=== PATIENT | male | born 1940 | race Caucasian/White ===

== ENCOUNTER 2018-06-13 07:07 | Emergency (ER) | payer MEDICARE, OTHER ==
--- NOTE | 2018-06-13 07:11 | ER Report ---
History and Physical Time Seen By MD: 07:10 HPI/ROS CHIEF COMPLAINT: Left-sided abdominal pain 2 weeks HISTORY OF PRESENT ILLNESS: Patient is a 77-year-old male here with complaints of progressively worsening left-sided abdominal pain over the course the past 2 weeks. Patient reports constipation, last full bowel movement was several days ago. The patient is passing flatus. He does have a history significant for an appendectomy at a young age, hiatal hernia repair in 2016. Denies prior history of bowel obstructions. Denies taking analgesics for symptom management. Patient does have a history of hyperlipidemia, hypertension, hypothyroid. Denies recent history of abdominal trauma. REVIEW OF SYSTEMS: Constitutional: No fever, no chills. Eyes: No discharge. ENT: No sore throat. Cardiovascular: No chest pain, no palpitations. Respiratory: No cough, no shortness of breath. Gastrointestinal: + Left side abdominal pain, no vomiting, + intermittent mild nausea, denies blood in the stools or urine Genitourinary: No hematuria. Musculoskeletal: No back pain. Skin: No rashes. Neurological: No headache. Allergies: Coded Allergies: No Known Allergies (Verified Allergy, Unknown, 06/13/18) Home Meds Active Scripts Oxycodone Hcl (OXYCODONE HCL) 5 Mg Capsule, 5 MG PO Q6-8H PRN for PAIN, #10 CAPSULE Prov:SIRIA MURRIETA DO 06/13/18 Ondansetron 4 Mg Odt (ONDANSETRON 4 MG ODT) 4 Mg Tab.rapdis, 4 MG PO ONCE, #30 TAB Prov:SIRIA MURRIETA DO 06/13/18 Amoxicillin/Pot Clav 875-125 Mg Tab (AUGMENTIN 875-125 TABLET) 1 Each Tablet, 1 TAB PO Q12H for 10 Days, #20 TAB Prov:SIRIA MURRIETA DO 06/13/18 Reported Medications Rosuvastatin Calcium (CRESTOR) 10 Mg Tab, 10 MG PO QDAY, #5 TAB 06/13/18 Fenofibrate,Micronized (TRICOR) 145 Mg Tab, 145 MG PO QDAY, #10 TAB 06/13/18 Losartan/Hydrochlorothiazide (HYZAAR 100-25 TABLET) 1 Each Tablet, 1 EACH PO QDAY 06/13/18 Levothyroxine Sodium (SYNTHROID) 100 Mcg Tablet, 100 MCG PO QDAY 06/13/18 Constitutional Vital Sign - Last 24 Hours 06/13/18 06/13/18 06/13/18 06/13/18 07:07 07:12 07:16 07:30 Temp 97.7 Pulse 56 56 Resp 14 B/P (MAP) 162/85 (110) 162/85 152/78 (102) Pulse Ox 93 O2 Delivery Room Air 06/13/18 06/13/18 06/13/18 06/13/18 07:37 08:23 08:30 08:35 Pulse 55 61 B/P (MAP) 149/74 (99) 144/72 (96) Pulse Ox 92 92 06/13/18 06/13/18 08:40 09:00 Pulse 57 B/P (MAP) 141/77 (98) Pulse Ox 92 Physical Exam General Appearance: The patient is alert, has no immediate need for airway protection and no signs of toxicity. Uncomfortable appearing Eyes: Pupils equal and round no pallor or injection. ENT, Mouth: Mucous membranes are moist. Respiratory: There are no retractions, lungs are clear to auscultation. Cardiovascular: Regular rate and rhythm. Gastrointestinal: Tender on palpation of the left mid abdomen without rebound or guarding Neurological: No focal neurological deficits Skin: Warm and dry, no rashes. Musculoskeletal: Neck is supple non tender. Extremities are nontender, nonswollen and have full range of motion. DIFFERENTIAL DIAGNOSIS: After history and physical exam differential diagnosis was considered for abdominal pain including but not limited to appendicitis, cholecystitis, gastritis and urinary tract infection. Diverticulitis Medical Decision Making Data Points Result Diagram: 06/13/18 0717 06/13/1817 Laboratory Hematology Test 06/13/18 07:17 06/13/18 07:36 Red Blood Count 5.44 M/uL (4.00-5.60) Mean Corpuscular Volume 89.6 fL (80.0-96.0) Mean Corpuscular Hemoglobin 30.5 pg (26.0-33.0) Mean Corpuscular Hemoglobin Concent 34.1 g/dL (32.0-36.0) Red Cell Distribution Width 13.7 % (11.5-14.5) Mean Platelet Volume 9.2 fL (7.2-11.1) Neutrophils (%) (Auto) 61.2 % (39.4-72.5) Lymphocytes (%) (Auto) 26.3 % (17.6-49.6) Monocytes (%) (Auto) 9.6 % (4.1-12.4) Eosinophils (%) (Auto) 2.3 % (0.4-6.7) Basophils (%) (Auto) 0.6 % (0.3-1.4) Nucleated RBC Relative Count (auto) 0.1 /100WBC Neutrophils # (Auto) 6.1 K/uL (2.0-7.4) Lymphocytes # (Auto) 2.6 K/uL (1.3-3.6) Monocytes # (Auto) 1.0 K/uL (0.3-1.0) Eosinophils # (Auto) 0.2 K/uL (0.0-0.5) Basophils # (Auto) 0.1 K/uL (0.0-0.1) Nucleated RBC Absolute Count (auto) 0.01 K/uL Sodium Level 142 mmol/L (137-145) Potassium Level 3.6 mmol/L (3.5-5.0) Chloride Level 101 mmol/L (98-107) Carbon Dioxide Level 29 mmol/L (22-30) Blood Urea Nitrogen 20 mg/dl (9-21) Creatinine 1.30 mg/dl (0.66-1.25) Glomerular Filtration Rate Calc 53.8 Random Glucose 107 mg/dl (75-110) Calcium Level 9.9 mg/dl (8.4-10.2) Total Bilirubin 0.6 mg/dl (0.2-1.3) Aspartate Amino Transf (AST/SGOT) 46 U/L (0-35) Alanine Aminotransferase (ALT/SGPT) 46 U/L (0-56) Alkaline Phosphatase 37 U/L (0-126) Total Protein 8.1 g/dl (6.3-8.2) Albumin 4.9 g/dl (3.5-5.0) Lipase 329 U/L (23-300) Lactate 1.3 mmol/L (0.7-2.1) Chemistry Test 06/13/18 07:17 06/13/18 07:36 White Blood Count 10.0 k/uL (4.5-11.0) Red Blood Count 5.44 M/uL (4.00-5.60) Hemoglobin 16.6 g/dL (14.0-18.0) Hematocrit 48.8 % (42.0-52.0) Mean Corpuscular Volume 89.6 fL (80.0-96.0) Mean Corpuscular Hemoglobin 30.5 pg (26.0-33.0) Mean Corpuscular Hemoglobin Concent 34.1 g/dL (32.0-36.0) Red Cell Distribution Width 13.7 % (11.5-14.5) Platelet Count 214 K/uL (150-450) Mean Platelet Volume 9.2 fL (7.2-11.1) Neutrophils (%) (Auto) 61.2 % (39.4-72.5) Lymphocytes (%) (Auto) 26.3 % (17.6-49.6) Monocytes (%) (Auto) 9.6 % (4.1-12.4) Eosinophils (%) (Auto) 2.3 % (0.4-6.7) Basophils (%) (Auto) 0.6 % (0.3-1.4) Nucleated RBC Relative Count (auto) 0.1 /100WBC Neutrophils # (Auto) 6.1 K/uL (2.0-7.4) Lymphocytes # (Auto) 2.6 K/uL (1.3-3.6) Monocytes # (Auto) 1.0 K/uL (0.3-1.0) Eosinophils # (Auto) 0.2 K/uL (0.0-0.5) Basophils # (Auto) 0.1 K/uL (0.0-0.1) Nucleated RBC Absolute Count (auto) 0.01 K/uL Glomerular Filtration Rate Calc 53.8 Calcium Level 9.9 mg/dl (8.4-10.2) Total Bilirubin 0.6 mg/dl (0.2-1.3) Aspartate Amino Transf (AST/SGOT) 46 U/L (0-35) Alanine Aminotransferase (ALT/SGPT) 46 U/L (0-56) Alkaline Phosphatase 37 U/L (0-126) Total Protein 8.1 g/dl (6.3-8.2) Albumin 4.9 g/dl (3.5-5.0) Lipase 329 U/L (23-300) Lactate 1.3 mmol/L (0.7-2.1) EKG/Imaging Imaging FACILITY: [facility] [place]IENT NAME: Ramy Obregon : 1940 MR: [id number] V: [id number] EXAM DATE: ORDERING PHYSICIAN: SIRIA MURRIETA TECHNOLOGIST: Location: [facility] Patient: Ramy Obregon : 1940 Visit/Account:[id number] Date of Sevice: 06/13/2018 CT ABDOMEN PELVIS W/ CON HISTORY: , Left sided abd pain TECHNIQUE: CT abdomen and pelvis with intravenous contrast. One of the following dose optimization techniques was utilized in the performance of this exam: automated exposure control; adjustment of the mA and/or kV according to patient size; or use of iterative reconstruction technique. Specific details can be referenced in the facility?s radiology CT exam operational policy. CONTRAST: 90 mL Isovue-370 COMPARISON: None. FINDINGS: Visualized lung bases: Negative. Hepatobiliary: The liver is diffusely low in attenuation consistent with fatty infiltration. Spleen: Punctate calcifications consistent with old granulomatous disease are present. Adrenals: Negative. Pancreas: Negative. Kidneys/: The kidneys enhance symmetrically. There is a 3.3 cm left upper pole cyst present GI: Within the left lower quadrant, there is a focal area of inflammation involving a descending colonic diverticulum consistent with focal diverticulitis. There is no evidence of perforation or abscess. No obstruction is identified. The remainder of the bowel is within normal limits. Vessels/spaces/nodes: Moderate atherosclerotic disease of the abdominal aorta is present. Within the right lower quadrant, scarring is present from hernia repair Bones/soft tissues: Moderate degenerative disc space disease is noted within the visualized thoracic spine IMPRESSION: Uncomplicated focal diverticulitis of the distal descending colon. Incidental findings as described Results were discussed with SIRIA MURRIETA at 06/13/2018 8:15 a.m.. Report Dictated By: Fredrick Lazcano at 06/13/2018 8:16 AM ED Course/Re-evaluation ED Course Patient is a 77-year-old male here with complaints of left-sided abdominal pain for 2 weeks which has been intermittent, worsening. Patient is passing flatus. Patient does have a history of an appendectomy at an early age, hiatal hernia repair in 2016. Denies prior history of bowel obstruction. Labs and CT imaging were ordered. Patient was given IV fluid bolus, fentanyl. CT imaging identified an uncomplicated diverticulitis. Patient was given prescription for Augmentin 10 day course, close PCP follow-up recommended. Labs are unremarkable. Scripts for oxicodone and Zofran were given for symptomatic treatment. Return precautions provided. Decision to Disposition Date: Jun 13, 2018 Decision to Disposition Time: 09:00 Depart Departure Latest Vital Signs Vital Signs Date Time Temp Pulse Resp B/P (MAP) Pulse Ox O2 Delivery O2 Flow Rate FiO2 06/13/18 09:00 141/77 (98) 06/13/18 08:40 57 92 06/13/18 07:16 97.7 14 Room Air Impression: Primary Impression: Diverticulitis Condition: Improved Disposition: HOME OR SELF-CARE New Scripts Oxycodone Hcl (OXYCODONE HCL) 5 Mg Capsule 5 MG PO Q6-8H PRN for PAIN, #10 CAPSULE Prov: SIRIA MURRIETA DO 06/13/18 Ondansetron 4 Mg Odt (ONDANSETRON 4 MG ODT) 4 Mg Tab.rapdis 4 MG PO ONCE, #30 TAB Prov: SIRIA MURRIETA DO 06/13/18 Amoxicillin/Pot Clav 875-125 Mg Tab (AUGMENTIN 875-125 TABLET) 1 Each Tablet 1 TAB PO Q12H for 10 Days, #20 TAB Prov: SIRIA MURRIETA DO 06/13/18 Patient Instructions: Diverticulitis (ED) Additional Instructions: Please take Augmentin 1 tablet twice daily for 10 days. Please follow-up with y our family doctor in the next 3-5 days. Please return immediately if you develop worsening abdominal pain, fevers, blood in the stools or urine, inability to keep down food or fluids, abdominal distention. Please drink plenty of water. You may take Zofran 1 tablet every 4-6 hours as needed for nausea control. You may take oxycodone 1 tablet every 6-8 hours as needed for breakthrough pain control, please do not drink alcohol or drive while on this medication. SIRIA MURRIETA DO Jun 13, 2018 07:11
[2018-06-13] MEDS ORDERED: NS(*) 0.9% 1000 ML BAG 1,000 ML IV ONE (07:26)
[2018-06-13] MEDS ORDERED: FEN145 PO (07:28)
[2018-06-13] MEDS ORDERED: LEVO100T95 PO (07:28)
[2018-06-13] MEDS ORDERED: ROSU10TA PO (07:28)
[2018-06-13] MEDS ORDERED: LOSA-44 PO (07:28)
[2018-06-13] MEDS ORDERED: fentaNYL CITR 100 MCG/2 ML AMP IVP ONE (07:30)
[2018-06-13 07:34] LABS: PLATELET COUNT, AUTOMATED 214 K/uL (150-450)
[2018-06-13] MEDS ORDERED: IOPAMIDOL 76% 150 ML INFUS BTL 150 ML ONE (07:55)
--- NOTE | 2018-06-13 08:37 | RADIOLOGY IMAGING REPORT ---
FACILITY: [facility] - [place] PATIENT NAME: Ramy Obregon : 1940 MR: [id number] V: [id number] EXAM DATE: ORDERING PHYSICIAN: SIRIA MURRIETA TECHNOLOGIST: Location: [facility] - [place] Patient: Ramy Obregon : 1940 Visit/Account:[id number] Date of Sevice: 06/13/2018 CT ABDOMEN PELVIS W/ CON HISTORY: , Left sided abd pain TECHNIQUE: CT abdomen and pelvis with intravenous contrast. One of the following dose optimization techniques was utilized in the performance of this exam: autom ated exposure control; adjustment of the mA and/or kV according to patient size; or use of iterative reconstruction technique. Specific details can be referenced in the facility?s radiology CT exam oper ational policy. CONTRAST: 90 mL Isovue-370 COMPARISON: None. FINDINGS: Visualized lung bases: Negative. Hepatobiliary: The liver is diffusely low in attenuation consistent with fatty infiltration. Spleen: Punctate calcifications consistent with old granulomatous disease are present. Adrenals: Negative. Pancreas: Negative. Kidneys/: The kidneys enhance symmetrically. There is a 3.3 cm left upper pole cyst present GI: Within the left lower quadrant, there is a focal area of inflammation involving a descending col onic diverticulum consistent with focal diverticulitis. There is no evidence of perforation or absces s. No obstruction is identified. The remainder of the bowel is within normal limits. Vessels/spaces/nodes: Moderate atherosclerotic disease of the abdominal aorta is present. Within the right lower quadrant, scarring is present from hernia repair Bones/soft tissues: Moderate degenerative disc space disease is noted within the visualized thoracic spine IMPRESSION: Uncomplicated focal diverticulitis of the distal descending colon. Incidental findings as described Results were discussed with SIRIA MURRIETA at 06/13/2018 8:15 a.m.. Report Dictated By: Fredrick Lazcano at 06/13/2018 8:16 AM Report E-Signed By: Fredrick Lazcano at 06/13/2018 8:33 AM WSN:[id number]
[2018-06-13 09:00] VITALS: BP 141/77
[2018-06-13] MEDS ORDERED: OXYC5CAP21 PO (09:03)
[2018-06-13] MEDS ORDERED: ONDA4TAB9 PO (09:03)
[2018-06-13] MEDS ORDERED: AMOX-559 PO (09:03)
== END 2018-06-13 09:18 | disposition home or self-care (01) ==
LOC: ER 07:21
DX: K57.92 Diverticulitis of intestine, part unspecified, without perforation or abscess without bleeding (principal)
CPT/HCPCS: 74177; 83605; 83690; 85025; 96360; 99284; J7030; Q9967; 82040; 82247; 82310; 82374; 82435; 82565; 82947; 84075; 84132; 84155; 84295; 84450; 84460; 84520

== ENCOUNTER 2018-08-13 00:13 | Day surgery (SDC) | payer MEDICARE, OTHER ==
[~2018-08-13] VITALS: Ht 182.9 cm; Wt 82.1 kg
[2018-08-13] VITALS (8 sets, daily range): BP systolic 106–160; BP diastolic 56–76
[~2018-08-13 00:13] MED LIST: AMOX-559 PO; ASCO-182 PO; CYAN10006 PO; FEN145 PO; LEVO100T95 PO; LOSA-44 PO; MULT1TAB54 PO; OMEP-218 PO; ONDA4TAB9 PO; OXYC5CAP21 PO; ROSU10TA PO; ZINC50TA2 PO
[2018-08-13] MEDS ORDERED: LIDOCAINE/SOD BICARB 8.4% SYR ID ONE (11:30)
[2018-08-13] MEDS ORDERED: NORMOSOL R SOLN(*) 1000 ML BAG 1,000 ML IV PRN (11:30)
== END 2018-08-13 15:20 | disposition home or self-care (01) ==
LOC: OR 00:13
PROVIDERS: ATTEND Family Medicine
DX: Z12.11 Encounter for screening for malignant neoplasm of colon (principal); K57.30 Diverticulosis of large intestine without perforation or abscess without bleeding
CPT/HCPCS: 88305